=== PATIENT | male | born 1975 | race Caucasian/White ===

== ENCOUNTER 2018-02-22 00:59 | Emergency (ER) | payer OTHER ==
[~2018-02-22] VITALS: Ht 180.3 cm; Wt 81.6 kg
[2018-02-22 01:45] VITALS: BP 140/82
--- NOTE | 2018-02-22 02:00 | Emergency Room Report ---
History of Present Illness General Chief Complaint: Dyspnea/Respdistress Source: Patient Present Illness HPI This a 42-year-old male with no past medical history. He presents with chief complaint of shortness of breath. He just came back from a long flight from [place]. He said it was very jet black and woke up today to eat sometimes mushroom area he then developed shortness of breath. He said he had similar symptoms in the past after eating mushroom particularly shiitake mushrooms. Said he felt a bit better now. Able to drive himself here. No nausea no vomiting. No fever or chills. No diaphoresis. No chest pain. No syncope. Denies any leg swelling. No family history of DVT or PE. Allergies: Uncoded Allergies: MUSHROOMS (Allergy, Unknown, 02/22/18) Patient History Past Medical History: see triage record, old chart reviewed Past Surgical History: none Pertinent Family History: none Social History: Denies: smoking Immunizations: other Reviewed Nursing Documentation: PMH: Agreed; PSxH: Agreed Nursing Documentation-PMH Past Medical History: No Stated History Review of Systems Eye: Denies: eye pain, blurred vision ENT: Denies: ear pain, nose congestion, throat swelling Respiratory: Reports: shortness of breath; Denies: cough Cardiovascular: Denies: chest pain, palpitations Gastrointestinal: Denies: abdominal pain, diarrhea, nausea, vomiting Musculoskeletal: Denies: back pain, joint pain Skin: Denies: rash Neurological: Denies: headache, numbness Endocrine: Denies: increased thirst, increased urine Hematologic/Lymphatic: Denies: easy bruising All Other Systems: negative except mentioned in HPI Physical Exam Vital Signs Date Time Temp Pulse Resp B/P (MAP) Pulse Ox O2 Delivery O2 Flow Rate FiO2 02/22/18 01:13 97.5 87 16 153/83 98 Room Air vitals unremarkable Sp02 EP Interpretation: reviewed, normal General Appearance: well appearing, no apparent distress, alert Head: normocephalic, atraumatic Eyes: bilateral eye PERRL, bilateral eye EOMI ENT: hearing grossly normal, normal pharynx Neck: full range of motion, supple, no meningismus Respiratory: chest non-tender, lungs clear, normal breath sounds Cardiovascular #1: regular rate, rhythm, no murmur Gastrointestinal: normal bowel sounds, non tender, no mass, no organomegaly, no bruit, non-distended Musculoskeletal: back normal, gait/station normal, normal range of motion Psychiatric: mood/affect normal Skin: warm/dry Medical Decision Making Diagnostic Impression: Primary Impression: Dyspnea Qualified Codes: R06.00 - Dyspnea, unspecified ER Course Patient with shortness of breath. This may be secondary to reaction to mushrooms since he had a before. He has no other risk factor for PE or DVT. Last Vital Signs Date Time Temp Pulse Resp B/P (MAP) Pulse Ox O2 Delivery O2 Flow Rate FiO2 02/22/18 01:13 97.5 87 16 153/83 98 Room Air Status: improved Disposition: HOME, SELF-CARE Condition: Stable Referrals: NOT CHOSEN IPA/MD,REFERRING (PCP) Patient Instructions: Shortness of Breath, [id number] Additional Instructions: Follow up with your doctor in 7 days. Return if worse. Azam Malave MD Feb 22, 2018 02:00
[2018-02-22 02:11] VITALS: BP 140/82
== END 2018-02-22 02:13 | disposition home or self-care (01) ==
LOC: EMR 01:29
DX: R06.00 Dyspnea, unspecified (principal); Z91.018 Allergy to other foods
CPT/HCPCS: 99282